=== PATIENT | female | born 1955 | race Caucasian/White ===

== ENCOUNTER → 2017-03-20 | Outpatient (CLI) | payer OTHER ==
[~2017-03-20] MED LIST: AMB5 PO; ANTIOXIDANT; ASPI81TA21 PO; CLC100X PO; DLCS PR; ENOX40IN SQ; GEMF600T PO; GLIP5TAB11 PO; HYDR25TA4 PO; LISI-729 PO; MULTTAB58 PO; OXYC-292 PO; OXYC-643 PO
--- NOTE | 2017-03-21 07:35 | MAMMOGRAPHY REPORT ---
BILATERAL DIGITAL SCREENING MAMMOGRAM TOMOSYNTHESIS WITH CAD: 03/20/2017 CLINICAL HISTORY: Routine screening. Patient has no complaints. TECHNIQUE: Breast tomosynthesis in addition to standard 2D mammography was performed. Current study was also evaluated with a Computer Aided Detection (CAD) system. COMPARISON: Comparison is made to exams dated: 09/29/2014 mammogram, 08/19/2013 mammogram, 07/15/2012 deniz mogram, 05/29/2011 mammogram, 10/18/2010 mammogram, and 04/01/2010 mammogram - [facility]. BREAST COMPOSITION: There are scattered areas of fibroglandular density in both breasts. FINDINGS: There are stable asymmetries in the right breast, along the posterior nipple line on the CC view, and lateral breast on the CC view. Minimal vascular calcification. No new suspicious mass, a rchitectural distortion or cluster of microcalcifications is seen. IMPRESSION: ACR BI-RADS CATEGORY 1: NEGATIVE There is no mammographic evidence of malignancy. A 1 year screening mammogram is recommended. The pa tient will receive written notification of the results. Approximately 10% of breast cancers are not detected with mammography. A negative mammographic report should not delay biopsy if a clinically suggestive mass is present. Audrey Alanis M.D. ay/:03/20/2017 17:07:16 Ladle Liner Helper: Neel Romeo M, [facility] letter sent: Normal 1/2 BI-RADS Code: ACR BI-RADS Category 1: Negative
== END | disposition home or self-care (01) ==
LOC: C.MAMM 13:15
PROVIDERS: ATTEND Family Medicine
DX: Z12.31 Encounter for screening mammogram for malignant neoplasm of breast (principal)